=== PATIENT | male | born 2000 | race Caucasian/White ===

== ENCOUNTER 2021-09-07 16:29 | Emergency (ER) | payer OTHER ==
[2021-09-07 17:48] LABS: BASOPHIL 0.6 % (0-2); EOSINOPHIL 1.4 % (0-5); HCT 45.8 % (42.0-52.0); HGB 15.7 g/dl (13.2-18.0); LYMPHOCYTE 38.8 % (15-48); MCH 29.9 pg (25.0-31.0); MCHC 34.3 g/dL (32.0-36.0); MCV 87.2 fL (78.0-100.0); MONOCYTE 9.1 % (0-12); NRBC 0; PLT 284 K/uL (150-400); RBC 5.25 M/uL (4.70-6.00); RDW 12.2 % (11.5-14.0); WBC 6.9 K/uL (4.0-10.5)
[2021-09-07 18:03] LABS: BUN/CREAT RATIO (CALC) 11.1 RATIO; CREATININE 1.08 mg/dL (0.67-1.17); POTASSIUM 3.7 mmol/L (3.5-5.1)
== END 2021-09-07 18:46 | disposition home or self-care (01) ==
LOC: FER 16:29
PROVIDERS: Nurse Practitioner Family
DX: M79.661 Pain in right lower leg (principal); R20.0 Anesthesia of skin; R20.2 Paresthesia of skin
CPT/HCPCS: 36415; 80048; 85025; 93971